=== PATIENT | female | born 1985 | race Caucasian/White ===

== ENCOUNTER → 2021-02-26 | Day surgery (SDC) | payer OTHER ==
[2021-02-25 10:27] LABS: COVID AG,FIA SOURCE NASOPHARYNGEAL
[~2021-02-26] VITALS: Ht 162.6 cm; Wt 100.0 kg
[~2021-02-26] MED LIST: ETHYL ALCOHOL 62% ANTISEPTIC NASAL INHALANT 0.6 ML AMPUL NASAL ONE; LIDOCAINE/PF 2% 5 ML VIAL IM ONE; ONDANSETRON HCL 4 MG/2 ML VIAL IVP ONE; PROPOFOL 1% 20 ML VIAL IVP ONE; SODIUM CHLORIDE 0.9% 1,000 ML IV ONE; SODIUM CHLORIDE 0.9% 1,000 ML ONE
== END | disposition home or self-care (01) ==
LOC: SURGERY 10:53
PROVIDERS: ATTEND Internal Medicine Gastroenterology
DX: K29.70 Gastritis, unspecified, without bleeding (principal); B37.81 Candidal esophagitis; K21.00 Gastro-esophageal reflux disease with esophagitis, without bleeding
CPT/HCPCS: 43239; 84703; 87426; C1769; C9803; J2405; J2704; J3490; J7030; 88305